=== PATIENT | male | born 1950 | race Caucasian/White ===

== ENCOUNTER 2018-12-13 04:09 | Inpatient (IN) | payer MEDICARE, OTHER ==
[~2018-12-13] VITALS: Ht 203.2 cm; Wt 112.0 kg
[~2018-12-13 04:09] MED LIST: AMARYL2 MG PO; APAP500 PO; BACTROBAN22 GM TP; CATAPRES0.2 MG PO; CIPROFLOXACIN500 M1 PO; CLEOCIN HCL300 MG PO; COLACE100 MG PO; DIABETA 2.5MG2.5 MG PO; FLOMAX0.4 MG PO; HYTRIN 5 M5 MG/1 CAP PO; KEFLEX500 M1 PO; LEVOTHYROXIN0.175 MG PO; LEVSIN-SL0.125 MG SL; LISINOPRIL10 MG PO; METFORMIN HCL500 MG PO; NORCO 5-325 TA1 EACH PO; PERCOCET 5-3251 EACH PO; PREDNISONE 20 M20 M1 PO; PROSCAR 5MG TABL5 MG PO; VENTOLIN HFA 1818 GM INH; ZOCOR20 MG PO; ZPAK PO
[2018-12-13 04:15] VITALS: BP 153/82
[2018-12-13] MEDS ORDERED: AZITHROMYCIN 2250 MG PO (04:20)
[2018-12-13] MEDS ORDERED: ADVAIR HFA 230M12 GM INH (04:20)
[2018-12-13 04:40] LABS: ABSOLUTE BASOPHILS 0.1 thou/uL (0.0-0.2); ABSOLUTE EOSINOPHILS 0.2 thou/uL (0.0-0.7); ABSOLUTE LYMPHOCYTES 1.5 thou/uL (0.8-5.3); ABSOLUTE MONOCYTES 0.9 thou/uL (0.0-1.2); ABSOLUTE NEUTROPHILS 6.6 thou/uL (1.6-8.1); BASOPHILS 0.7 %; EOSINOPHILS 1.7 %; HEMATOCRIT 38.6 % (42.0-52.0); HEMOGLOBIN 13.2 gm/dL (14.0-18.0); LYMPHOCYTES 16.6 %; MCH 30.9 pg (26.0-34.0); MCHC 34.3 g/dL (28.0-37.0); MCV 90.1 fL (80.0-100.0); MONOCYTES 10.1 %; MPV 7.4 fl. (7.2-11.1); NUCLEATED RBCS 0 /100WBC; PLATELET COUNT* 254 thou/uL (150-400); POLYS 70.9 %; RBC 4.29 mil/uL (4.50-6.00); RDW-CV 13.1 % (10.5-14.5); WBC 9.3 thou/uL (4.0-11.0)
[2018-12-13 04:53] LABS: ANION GAP 7 mmol/L (7-16); BUN 10 mg/dL (7-18); CALCIUM 8.8 mg/dL (8.5-10.1); CHLORIDE 106 mmol/L (98-107); CO2 29 mmol/L (21-32); GLUCOSE 148 mg/dL (70-99); POTASSIUM 4.2 mmol/L (3.5-5.1); SODIUM 142 mmol/L (136-145)
[2018-12-13 04:56] LABS: PROTIME 9.8 Seconds (9.20-11.50)
[2018-12-13 05:04] LABS: ALBUMIN 3.1 g/dL (3.4-5.0); ALKALINE PHOSPHATASE 79 U/L (46-116); LIPASE 145 U/L (73-393); NT-PRO BRAIN NAT PEPTIDE 92 pg/mL (<300); SGOT 11 U/L (15-37); SGPT 20 U/L (30-65); TOTAL BILIRUBIN 1.3 mg/dL (<0.1-1.0); TROPONIN-I LEVEL <0.06 ng/mL (<0.06)
[2018-12-13 12:00] VITALS: BP 153/80
--- NOTE | 2018-12-13 14:51 | EKG ---
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1950 Requested By: Oneal Sequeira Order Number: [id number] MD: Chris Isaacs Measurements Intervals [place] Rate: 93 P: 27 KS: 180 QRS: -59 QRSD: 131 T: 21 QT: 366 QTc: 456 Interpretive Statements Sinus rhythm RBBB and LAFB Compared to ECG 10/02/2016 09:28:12 Left anterior fascicular block now present Electronically Signed On 12-13-2018 14:50:55 CDT by Chris Isaacs [email or web address] <ELECTRONICALLY SIGNED> By: Chris Isaacs MD, [facility] 12/13/18 1450 0416 0416 Chris Isaacs MD, [facility] /EPI
--- NOTE | 2018-12-13 15:48 | 2DMMODE ---
[place] [address] 2 D/M-MODE ECHOCARDIOGRAM Name: GREG NOLASCO ROSARIO Room: [address] IN .R.#: [id number] Admission: 12/13/18 Attend Phys: Dallas Harkins, Discharge: Date of : 46 Date of Service: 12/13/18 1548 Report #: [id number] THIS REPORT FOR: //name// APPROVED REPORT Study performed: 12/13/2018 14:38:07 EXAM: Comprehensive 2D, Doppler, and color-flow Echocardiogram Patient Location: Bedside BSA: 2.57 HR: 93 bpm BP: 153/80 mmHg Other Information Study Quality: Fair Indications COPD Myocardial Infarction 2D Dimensions IVSd: 12.62 (7-11mm) LVOT Diam: 26.20 (18-24mm) LVDd: 51.54 mm PWd: 9.44 (7-11mm) Ascending Ao: 35.16 (22-36mm) LVDs: 31.90 (25-40mm) Aortic Root: 36.05 mm Volumes Left Atrial Volume (Systole) LA ESV Index: 14.60 mL/m2 Aortic Valve AoV Peak Isaac.: 1.22 m/s AO Peak Gr.: 5.94 mmHg LVOT Max P.12 mmHg AO Mean Gr.: 3.89 mmHg LVOT Mean P.02 mmHg LVOT Max V: 1.13 m/s AO V2 VTI: 22.44 cm LVOT Mean V: 0.82 m/s TU (VTI): 5.16 cm2 LVOT V1 VTI: 21.50 cm Mitral Valve E/A Ratio: 0.70 MV Decel. Time: 172.44 ms MV E Max Isaac.: 0.86 m/s MV PHT: 50.01 [place] [address] 2 D/M-MODE ECHOCARDIOGRAM Name: GREG NOLASCO Room: [address] IN ..#: [id number] Admission: 12/13/18 Attend Phys: Dallas Harkins, Discharge: Date of : 46 Date of Service: 12/13/18 1548 Report #: [id number] MVA (PHT): 4.40 cm2 TDI E/Lateral E': 7.82 E/Medial E': 8.60 Medial E' Isaac.: 0.10 m/s Lateral E' Isaac.: 0.11 m/s Pulmonary Valve PV Peak Isaac.: 1.09 m/s PV Peak Gr.: 4.76 mmHg Tricuspid Valve RAP Estimate: 20.00 mmHg TR Peak Gr.: 17.88 mmHg RVSP: 37.88 mmHg PA Pressure: 37.88 mmHg Left Ventricle The left ventricle is normal size. There is normal LV segmental wall motion. There is normal left ventricular wall thickness The left ventricular systolic function is normal. The left ventricular ejection fraction is within the normal range. LVEF is 65-70%. Grade I - abnormal relaxation pattern. Right Ventricle The right ventricle is normal size. The right ventricular systolic function is normal. Atria The left atrium size is normal. The right atrium size is normal. Aortic Valve Mild aortic valve sclerosis. No aortic regurgitation is present. There is no aortic valvular stenosis. Mitral Valve The mitral valve is normal in structure. There is no mitral valve regurgitation noted. No evidence of mitral valve stenosis. Tricuspid Valve The tricuspid valve is normal in structure. Trace tricuspid regurgitation. Pulmonic Valve The pulmonary valve is normal in structure. There is no pulmonic [place]vular [place] [address] 2 D/M-MODE ECHOCARDIOGRAM Name: GREG NOLASCO Room: [address] IN [facility]#: [id number] Admission: 12/13/18 Attend Phys: Dallas Harkins, Discharge: Date of : 46 Date of Service: 12/13/18 1548 Report #: [id number] Great Vessels The aortic root is normal in size. IVC is normal in size and collapses >50% with inspiration. Pericardium There is no pericardial effusion. <Conclusion> The left ventricle is normal size. There is normal left ventricular wall thickness The left ventricular systolic function is normal. The left ventricular ejection fraction is within the normal range. LVEF is 65-70%. Grade I - abnormal relaxation pattern. The right ventricle is normal size. The left atrium size is normal. Mild aortic valve sclerosis. No aortic regurgitation is present. There is no aortic valvular stenosis. The mitral valve is normal in structure. The tricuspid valve is normal in structure. There is no pericardial effusion. There is normal LV segmental wall motion. <ELECTRONICALLY SIGNED> By: Jarvis Ribeiro MD, [facility] 12/13/18 1548 1548 1548 Jarvis Ribeiro MD, FACC /INF
[2018-12-13 16:00] VITALS: BP 138/76
[2018-12-13 20:00] VITALS: BP 161/85
[2018-12-14] VITALS: BP 146/76
[2018-12-14 04:00] VITALS: BP 139/76
[2018-12-14 05:50] LABS: CHOLESTEROL 124 mg/dL (<200); HDL CHOLESTEROL 56 mg/dL (>40); LDL CHOLESTEROL 56 mg/dL (<100); TC:HDL 2.2 Ratio (Not establshd); TRIGLYCERIDE 61 mg/dL (<150); VLDL 12 mg/dL (<40)
[2018-12-14 05:56] LABS: SERUM ASSESSMENT Clear
[2018-12-14 08:22] VITALS: BP 135/73
[2018-12-14 09:09] LABS: GLYCOHEMOGLOBIN (HGB A1C) 6.6 % (4.8-5.6)
[2018-12-14 12:39] VITALS: BP 138/76
[2018-12-14 16:37] VITALS: BP 112/46; BP 134/66
[2018-12-14 20:10] VITALS: BP 166/87
[2018-12-15] VITALS: BP 143/77
[2018-12-15 04:00] VITALS: BP 146/80
[2018-12-15] MEDS ORDERED: ADVAIR HFA 230M12 GM INH (09:47)
[2018-12-15] MEDS ORDERED: MUCINEX600 MG PO (09:47)
[2018-12-15] MEDS ORDERED: VENTOLIN HFA 1818 GM INH (09:47)
[2018-12-15] MEDS ORDERED: CEFDINIR300 MG PO (09:47)
[2018-12-15] MEDS ORDERED: PREDNISONE 20 M20 MG PO (09:47)
[2018-12-15 11:47] VITALS: BP 145/70
[2018-12-15 12:03] VITALS: BP 146/85
== END 2018-12-15 13:47 | disposition home or self-care (01) | DRG 193 ==
LOC: M.ERS 04:09 → M.2W 05:30 → M.TBA-ER 05:30 → M.2W 09:01
PROVIDERS: Emergency Medicine; ADMIT Internal Medicine
DX: J18.0 Bronchopneumonia, unspecified organism (principal); J96.01 Acute respiratory failure with hypoxia; J44.1 Chronic obstructive pulmonary disease with (acute) exacerbation; I50.32 Chronic diastolic (congestive) heart failure; I25.10 Atherosclerotic heart disease of native coronary artery without angina pectoris; I16.0 Hypertensive urgency; E11.9 Type 2 diabetes mellitus without complications; I11.0 Hypertensive heart disease with heart failure; I25.2 Old myocardial infarction; Z85.850 Personal history of malignant neoplasm of thyroid; Z88.0 Allergy status to penicillin; Z79.899 Other long term (current) drug therapy

== ENCOUNTER → 2019-07-26 | Outpatient (CLI) | payer MEDICARE, OTHER ==
[~2019-07-26] MED LIST changes: +ADVAIR HFA 230M12 GM INH; +AZITHROMYCIN 2250 MG PO; +CEFDINIR300 MG PO; +MUCINEX600 MG PO; +PREDNISONE 20 M20 MG PO
== END ==
LOC: M.RAD 14:24
DX: M17.12 Unilateral primary osteoarthritis, left knee (principal); M76.892 Other specified enthesopathies of left lower limb, excluding foot

== ENCOUNTER 2021-06-03 21:08 | Emergency (ER) | payer OTHER ==
[~2021-06-03] VITALS: Ht 203.2 cm; Wt 108.0 kg
[2021-06-03] MEDS ORDERED: FLOMAX0.4 MG PO (21:41)
[2021-06-03 22:21] LABS: INFLUENZA A ANTIGEN Negative (Negative); INFLUENZA B ANTIGEN Negative (Negative)
[2021-06-03 23:40] LABS: CALCIUM 9.1 mg/dL (8.5-10.1); CREATININE 1.2 mg/dL (0.6-1.3); POTASSIUM 4.3 mmol/L (3.5-5.1)
[2021-06-03 23:41] LABS: ABSOLUTE EOSINOPHILS 0.1 thou/uL (0.0-0.7); ABSOLUTE LYMPHOCYTES 1.1 thou/uL (0.8-5.3); ABSOLUTE MONOCYTES 0.6 thou/uL (0.0-1.2); ABSOLUTE NEUTROPHILS 4.8 thou/uL (1.6-8.1); BASOPHILS 0.6 %; EOSINOPHILS 1.9 %; HEMATOCRIT 36.7 % (42.0-52.0); HEMOGLOBIN 12.7 gm/dL (14.0-18.0); LYMPHOCYTES 17.1 %; MCH 31.5 pg (26.0-34.0); MCHC 34.6 g/dL (28.0-37.0); MONOCYTES 9.2 %; MPV 7.1 fl. (7.2-11.1); NUCLEATED RBCS 0 /100WBC; PLATELET COUNT* 275 thou/uL (150-400); POLYS 71.2 %; RBC 4.03 mil/uL (4.50-6.00); RDW-CV 13.4 % (10.5-14.5); WBC 6.7 thou/uL (4.0-11.0)
[2021-06-03 23:52] LABS: ALBUMIN 3.7 g/dL (3.4-5.0); MAGNESIUM 1.8 mg/dL (1.8-2.4); TOTAL BILIRUBIN 0.7 mg/dL (<0.1-1.0); TOTAL PROTEIN 6.6 g/dL (6.4-8.2)
[2021-06-04 02:48] VITALS: BP 165/87
--- NOTE | 2021-06-04 12:23 | EKG ---
[place] [address] ELECTROCARDIOGRAM REPORT Name: GREG NOLASCO Room: [facility]#: [id number] Admission: 06/03/21 Attend Phys: Discharge: 06/04/21 Date of : 46 Date of Service: 06/03/212143 Report #: [id number] THIS REPORT FOR: //name// [facility] ED Test Date: 2021-06-03 Test Time: 21:44:05 Pat Name: GREG NOLASCO Department: Room: Gender: Plant Care Worker: : 1950 Requested By: Maria C Gaffney Order Number: [id number] MD: Titi Golden Measurements Intervals [place] Rate: 78 P: -13 MT: 208 QRS: -53 QRSD: 121 T: 10 QT: 394 QTc: 449 Interpretive Statements Sinus rhythm Right bundle branch block Inferior infarct, old Compared to ECG 12/13/2018 04:16:01 no change Electronically Signed On 06-04-2021 12:22:51 DONOR TECHNICIAN by Titi Golden [email or web address] <ELECTRONICALLY SIGNED> By: Titi Golden MD, [facility] 06/04/21 1222 2144 2144 Titi Golden MD, [facility] /EPI
== END 2021-06-04 02:48 | disposition home or self-care (01) ==
LOC: M.ERS 21:08
PROVIDERS: Emergency Medicine
DX: R06.00 Dyspnea, unspecified (principal); Z20.822 Contact with and (suspected) exposure to COVID-19; R51.9 Headache, unspecified; R05.9 Cough, unspecified; I10 Essential (primary) hypertension; E11.9 Type 2 diabetes mellitus without complications; F17.210 Nicotine dependence, cigarettes, uncomplicated; Z98.890 Other specified postprocedural states; Z90.89 Acquired absence of other organs; Z85.850 Personal history of malignant neoplasm of thyroid; Z79.899 Other long term (current) drug therapy; Z88.0 Allergy status to penicillin